=== PATIENT | male | born 1955 | race Caucasian/White ===

== ENCOUNTER → 2016-07-20 | Outpatient (CLI) | payer BC ==
[~2016-07-20] MED LIST: DIOVAN PO; NAPROSYN500 MG PO; ZYLOPRIM
--- NOTE | ~2016-07-20 | CT137 ---
[facility] RADIOLOGY TEXT RESULTS PATIENT: EVAN FIERRO [id number] : 59 UNIT #: [id number] AGE: [address]: Barrera Siegel MD SEX: M ORDER DR: [id number] [facility]. [place], [place] [address] [id number] O MR#: [id number] Acc #: [id number] NAME: EVAN FIERRO. : 1955 SEX: M STUDY DATE/TIME: 07/20/2016 8:16 UNIT: [facility] ROOM: STUDY DESCRIPTION: CT Lung Screening annual Attending Physician: Barrera Siegel M.D. Referring Physician: Barrera Siegel M.D. Ordering Physician: Barrera Siegel M.D. Primary Care Physician: Joan Lynch M.D. MEDICAL IMAGING REPORT This report is preliminary unless electronic signature is present EXAM CT lung cancer screening. INDICATIONS Lung cancer screening. 44 pack year smoking history. PROCEDURE Unenhanced low-dose CT of the chest performed per lung cancer screening protocol. This CT exam was performed with one or more of the following radiation dose reduction techniques: automatic exposure control, adjustment of mA and/or kV according to patient size, and iterative reconstruction. COMPARISON 06/29/2015 FINDINGS No suspicious pulmonary nodule. No adenopathy. No acute findings in the included upper abdomen. No aggressive appearing bone lesion. IMPRESSION No suspicious pulmonary nodule. Lung RADS category 1 negative. Per the ACR lung RADS recommendations suggest patient continue with annual low-dose lung cancer screening. Dictated by... Imtiaz Aleman M.D. THIS IS AN ELECTRONICALLY VERIFIED REPORT Imtiaz Aleman M.D. at 07/21/2016 6:52 AM [facility] A Service [facility] RADIOLOGY TEXT RESULTS PATIENT: EVAN FIERRO LOCATION: [facility] : 59 UNIT #: [id number] AGE: [address]: Barrera Siegel MD SEX: M ORDER DR: TD: 07/20/2016 11:16 JOB #: [id number] MEDICAL IMAGING REPORT Page 1 of 1 COPY
== END | disposition home or self-care (01) ==
LOC: CCAT 07:58
DX: Z87.891 Personal history of nicotine dependence (principal)
CPT/HCPCS: G0297